=== PATIENT | male | born 1965 | race African-American/Black ===

== ENCOUNTER 2016-12-18 12:51 | Emergency (ER) | payer MEDICAID ==
[~2016-12-18] VITALS: Ht 193 cm; Wt 117.9 kg
[2016-12-18] MEDS ORDERED: SODIUM CHLORIDE 0.9% 1,000 ML IV ONE (13:07)
[2016-12-18] MEDS ORDERED: KETOROLAC 30MG/ML VIAL IV ONE (14:45)
[2016-12-18 15:38] VITALS: BP 111/70
== END 2016-12-18 15:45 | disposition home or self-care (01) ==
LOC: ER 13:56
DX: S00.83XA Contusion of other part of head, initial encounter (principal); S09.90XA Unspecified injury of head, initial encounter; M54.12 Radiculopathy, cervical region; V49.40XA Driver injured in collision with unspecified motor vehicles in traffic accident, initial encounter; Y93.89 Activity, other specified; Y92.89 Other specified places as the place of occurrence of the external cause; Y99.8 Other external cause status
CPT/HCPCS: 70450; 70486; 72125; 96361; 96374; 99284; J1885; J7030; Z7610

== ENCOUNTER 2017-04-02 20:45 | Emergency (ER) | payer MEDICAID ==
[~2017-04-02] VITALS: Ht 193 cm; Wt 116.0 kg
[2017-04-02] MEDS ORDERED: KETOROLAC 60MG/2ML VIAL IM ONE (23:15)
[2017-04-03 02:20] VITALS: BP 111/73
== END 2017-04-03 02:21 | disposition home or self-care (01) ==
LOC: ER 20:56
DX: M25.722 Osteophyte, left elbow (principal)
CPT/HCPCS: 73080; 96372; 99284; J1885; Z7610; A4565

== ENCOUNTER 2018-09-06 08:11 | Emergency (ER) | payer MEDICAID ==
[~2018-09-06] VITALS: Ht 185.4 cm; Wt 118.0 kg
[2018-09-06] MEDS ORDERED: KETOROLAC 60MG/2ML VIAL IM ONE (08:45)
[2018-09-06] MEDS ORDERED: DIAZEPAM 5 MG TABLET PO ONE (08:45)
[2018-09-06 09:05] VITALS: BP 132/77
== END 2018-09-06 10:53 | disposition home or self-care (01) ==
LOC: ER 08:20
DX: M54.5 Low back pain (principal); Z90.89 Acquired absence of other organs
CPT/HCPCS: 72100; 96372; 99283; J1885

== ENCOUNTER 2018-11-06 10:36 | Emergency (ER) | payer MEDICAID ==
[~2018-11-06] VITALS: Ht 177.8 cm; Wt 85.0 kg
[2018-11-06] MEDS: KETOROLAC 60MG/2ML VIAL IM ONE (12:04)
[2018-11-06] MEDS ORDERED: TRAMADOL 50MG TABLET PO ONE (12:15)
[2018-11-06] MEDS: ACETAMINOPHEN 650MG/20.3ML UDC PO ONE (12:42)
[2018-11-06 13:25] VITALS: BP 118/62
== END 2018-11-06 13:30 | disposition home or self-care (01) ==
LOC: ER 10:36
DX: S63.602A Unspecified sprain of left thumb, initial encounter (principal); S46.001A Unspecified injury of muscle(s) and tendon(s) of the rotator cuff of right shoulder, initial encounter; E78.00 Pure hypercholesterolemia, unspecified; W01.0XXA Fall on same level from slipping, tripping and stumbling without subsequent striking against object, initial encounter; Y93.01 Activity, walking, marching and hiking; Y92.89 Other specified places as the place of occurrence of the external cause; Y99.8 Other external cause status
CPT/HCPCS: 73030; 73130; 96372; 99283; J1885